=== PATIENT | female | born 1965 | race African-American/Black ===

== ENCOUNTER → 2017-02-27 | Outpatient (CLI) | payer OTHER ==
--- NOTE | ~2017-02-27 | CT104 ---
[facility] A Service of [facility] & [facility] RADIOLOGY TEXT RESULTS PATIENT: ELTON COHEN LOCATION: [facility] : 67 UNIT #: [id number] AGE: [address]: Kate Cueto MD SEX: F ORDER DR: [id number] [place] [id number] O MR#: [id number] Acc #: [id number] NAME: ELTON COHEN : 1965 SEX: F STUDY DATE/TIME: 02/27/2017 9:53 UNIT: [facility] ROOM: STUDY DESCRIPTION: CT Orbits Wo Contrast Attending Physician: Kate Cueto M.D. Referring Physician: Kate Cueto M.D. Ordering Physician: Kate Cueto M.D. Primary Care Physician: Licha Cole M.D. MEDICAL IMAGING REPORT This report is preliminary unless electronic signature is present. EXAM CT of the orbits without contrast, 02/27/2017 PROCEDURE Axial unenhanced orbit CT with coronal reformats. This CT exam was performed with one or more of the following radiation dose reduction techniques: automatic exposure control, adjustment of mA and/or kV according to patient size, and iterative reconstruction. HISTORY Several month history of worsening left monocular vision and now left proptosis noted one week ago. FINDINGS There is stably redemonstrated left proptosis. There is no orbital soft tissue mass on either side. The extraocular muscles, intra and extraconal fat, globes and lacrimal glands and nerves appear normal. 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 It is less typical in appearance of an osteoma but in any event is unchanged in appearance since September 2016. On both exams, it measures about 2.6 to 2.7 cm in maximal medial to lateral dimension. On both exams there is a tiny area of associated mucosal thickening in the left either posterior nasal passage or a small ethmoid air cell but in any event unchanged and on both exams there is slight left sphenoid mucosal thickening. There is no change in the appearance of the lesion and craniocaudal dimension remains stable at about 3.5 cm. No other bony lesion is identified. IMPRESSION Left proptosis appears to be secondary to a large benign appearing bony STS. [facility] A Service of [facility] & [facility] RADIOLOGY TEXT RESULTS PATIENT: ELTON COHEN LOCATION: [facility] : 67 UNIT #: [id number] AGE: [address]: Kate Cueto MD SEX: F ORDER DR: lesion in the left mid to posterior ethmoids, almost certainly a large fibrous dysplasia. It is unchanged in appearance since September 19, 2016 and deformity secondary to this almost certainly accounts for the left proptosis. There is no lesion in either orbit in the soft tissues. There is some minimal sinus mucosal disease which also appears stable since the CT of September 2016. Dictated by... Odell Lobo M.D. THIS IS AN ELECTRONICALLY VERIFIED REPORT Odell Lobo M.D. at 03/02/2017 1:49 PM RAFAEL/cipriano TD: 02/28/2017 08:41 JOB #: [id number] MEDICAL IMAGING REPORT Page 1 of 1
[2017-02-27 09:45] LABS: THYROID STIMULATING HORMONE 1.49 uIU/ml (0.34-5.60)
[2017-02-27 11:37] LABS: FREE T3 3.7 pg/mL (2.5-3.9)
[2017-02-27 11:38] LABS: FREE THYROXIN (T4) 1.07 ng/dL (0.58-1.64)
== END | disposition home or self-care (01) ==
LOC: SCT 08:42
PROVIDERS: Ophthalmology
DX: H05.20 Unspecified exophthalmos (principal); M89.9 Disorder of bone, unspecified
CPT/HCPCS: 36415; 70480; 84439; 84443; 84481